=== PATIENT | male | born 1955 | race Caucasian/White ===

== ENCOUNTER 2018-03-23 19:07 | Emergency (ER) | payer OTHER ==
[~2018-03-23] VITALS: Ht 172.7 cm; Wt 70.3 kg
[~2018-03-23 19:07] MED LIST: ANTOXYBENA OT; ASPI325EC PO; CALCAVITD PO; CARI350 PO; CEPH500 PO; CYCL10 PO; DIAZ2 PO; DIAZ5 PO; Desyrel150 MG; GABA100 PO; GABA300 PO; HYDACE5 PO; HYDR1TAB94 PO; META800 PO; METH10 PO; METH1EL PO; MULVITMIND PO; NEOPOLHCSU OT; OXYACE5T PO; Omeprazole20 M1; PENVK250 PO; PENVK500 PO; PRAV20 PO; PRED10 PO; Percocet 5-3251 EACH PO; Pravachol40 MG PO; RXCLIN PO; RXCYCL10 PO; RXHYD5325 PO; RXMETA800 PO; RXOXYACE PO; RXPENVK250 PO; RXTRAM50 PO; Robaxin-750750 MG PO; Robaxin500 MG PO; SULTRIDS PO; TRAM50 PO; Veetids 500500 MG PO
[2018-03-23] MEDS ORDERED: Robaxin500 MG PO (21:28)
== END 2018-03-23 21:44 | disposition home or self-care (01) ==
LOC: ER 19:07
DX: M54.5 Low back pain (principal); M54.6 Pain in thoracic spine; I10 Essential (primary) hypertension; F17.210 Nicotine dependence, cigarettes, uncomplicated; Z88.8 Allergy status to other drugs, medicaments and biological substances; Z88.6 Allergy status to analgesic agent; Z88.5 Allergy status to narcotic agent; Z79.899 Other long term (current) drug therapy
CPT/HCPCS: 72070; 72100; 99283

== ENCOUNTER → 2019-06-11 | Outpatient (CLI) | payer OTHER ==
[~2019-06-11] MED LIST changes: +FURO20 PO; +GABA300T24 PO; +Methadone In10 MG/ML PO; +OMEPRAZOLE20 MG PO; +POTCHL20ER PO; +TRAZ150T57 PO
== END | disposition home or self-care (01) ==
LOC: LAB SHORT 08:01 → PLD 08:01
DX: C00-D49 Neoplasms (principal)
CPT/HCPCS: 88305

== ENCOUNTER 2019-06-27 12:28 | Day surgery (SDC) | payer OTHER ==
[~2019-06-27] VITALS: Ht 172.7 cm; Wt 87.0 kg
== END 2019-06-27 15:00 | disposition home or self-care (01) ==
LOC: ORSCSDS 12:28
PROVIDERS: Internal Medicine Gastroenterology
PROC: 0DB58ZX Excision of Esophagus, Via Natural or Artificial Opening Endoscopic, Diagnostic (ICD-10-PCS; principal; 2019-06-27 13:30)
PROC: 0DB68ZX Excision of Stomach, Via Natural or Artificial Opening Endoscopic, Diagnostic (ICD-10-PCS; principal; 2019-06-27 13:30)
DX: K21.0 Gastro-esophageal reflux disease with esophagitis (principal); K29.70 Gastritis, unspecified, without bleeding; K44.9 Diaphragmatic hernia without obstruction or gangrene; Z79.899 Other long term (current) drug therapy; F17.210 Nicotine dependence, cigarettes, uncomplicated
CPT/HCPCS: 88305; 88342; J2704; J7120

== ENCOUNTER 2019-09-07 16:02 | Emergency (ER) | payer OTHER ==
[~2019-09-07] VITALS: Ht 177.8 cm; Wt 86.2 kg
== END 2019-09-07 17:54 | disposition home or self-care (01) ==
LOC: ER 16:02
DX: S22.32XA Fracture of one rib, left side, initial encounter for closed fracture (principal); I10 Essential (primary) hypertension; F17.210 Nicotine dependence, cigarettes, uncomplicated; Z85.46 Personal history of malignant neoplasm of prostate; Z85.828 Personal history of other malignant neoplasm of skin; Z88.6 Allergy status to analgesic agent; Z88.8 Allergy status to other drugs, medicaments and biological substances; Z79.899 Other long term (current) drug therapy; Z79.891 Long term (current) use of opiate analgesic; W10.9XXA Fall (on) (from) unspecified stairs and steps, initial encounter
CPT/HCPCS: 71101; 99283-25

== ENCOUNTER 2019-09-14 18:20 | Emergency (ER) | payer OTHER ==
[~2019-09-14] VITALS: Ht 177.8 cm; Wt 88.5 kg
== END 2019-09-14 19:45 | disposition left against medical advice (07) ==
LOC: ER 18:20
DX: Z53.21 Procedure and treatment not carried out due to patient leaving prior to being seen by health care provider (principal)
CPT/HCPCS: 99283

== ENCOUNTER 2020-10-13 10:04 | Day surgery (SDC) | payer OTHER ==
[~2020-10-13] VITALS: Ht 177.8 cm; Wt 85.3 kg
== END 2020-10-13 11:48 | disposition home or self-care (01) ==
LOC: ORSCSDS 10:04
PROVIDERS: Internal Medicine Gastroenterology
PROC: 0D758ZZ Dilation of Esophagus, Via Natural or Artificial Opening Endoscopic (ICD-10-PCS; principal; 2020-10-13 11:15)
PROC: 0DJ08ZZ Inspection of Upper Intestinal Tract, Via Natural or Artificial Opening Endoscopic (ICD-10-PCS; principal; 2020-10-13 11:15)
DX: R13.10 Dysphagia, unspecified (principal); F17.210 Nicotine dependence, cigarettes, uncomplicated
CPT/HCPCS: J2704; J7120

== ENCOUNTER 2021-12-08 17:38 | Emergency (ER) | payer MEDICARE, OTHER ==
[~2021-12-08] VITALS: Ht 177.8 cm; Wt 95.2 kg
[2021-12-08 20:13] LABS: Source, Urine Clean Catch
[2021-12-08 20:33] LABS: Appearance, Urine Cloudy (Clear); Bilirubin, Urine Neg (Neg); Blood, Urine 2+ (Neg); Color, Urine Yellow (P-Yellow); Glucose Qualitative, Urine Neg (Neg); Ketones, Urine Neg (Neg); Leukocyte Esterase, Urine Neg (Neg); Nitrite, Urine Neg (Neg); Protein, Urine 2+ (Neg); Urobilinogen, Urine NORM (Normal)
[2021-12-08 21:10] LABS: Amorphous Heavy (0-Heavy); Bacteria Rare /hpf; Squamous Epithelial Cells Few /hpf (Few); White Blood Cells, Urine 0-2 /hpf (0-5)
[2021-12-08] MEDS ORDERED: CYCL10 PO (21:34)
[2021-12-08] MEDS ORDERED: PRED20 PO (21:34)
== END 2021-12-08 23:02 | disposition home or self-care (01) ==
LOC: ER 17:38
PROVIDERS: Physician Assistant
DX: M54.6 Pain in thoracic spine (principal); Z88.6 Allergy status to analgesic agent; Z88.8 Allergy status to other drugs, medicaments and biological substances; Z79.899 Other long term (current) drug therapy; I10 Essential (primary) hypertension; F17.210 Nicotine dependence, cigarettes, uncomplicated
CPT/HCPCS: 81001; A9270; J3010

== ENCOUNTER → 2022-02-10 | Outpatient (CLI) | payer MEDICARE, OTHER ==
[~2022-02-10] MED LIST changes: +PRED20 PO
[2022-02-10 20:10] LABS: BASOPHILS ABSOLUTE AUTO 0.06 K/mm3 (0.00-0.23); BASOPHILS PERCENT AUTO 0 % (0-2); EOSINOPHILS ABSOLUTE AUTO 0.52 K/mm3 (0.00-0.68); EOSINOPHILS PERCENT AUTO 4 % (0-6); Hematocrit 35.8 % (37.0-53.0); Hemoglobin 11.6 g/dL (13.5-17.5); IMMATURE GRAN ABSOLUTE AUTO 0.12 K/mm3 (0.00-0.10); IMMATURE GRAN PERCENT AUTO 1 % (0-1); LYMPHOCYTES ABSOLUTE AUTO 1.72 K/mm3 (0.84-5.20); LYMPHOCYTES PERCENT AUTO 13 % (21-46); MONOCYTES ABSOLUTE AUTO 1.02 K/mm3 (0.16-1.47); MONOCYTES PERCENT AUTO 8 % (4-13); Mean Corpuscular HGB 28.2 pg (26.0-34.0); Mean Corpuscular HGB Conc 32.4 g/dL (31.5-36.5); Mean Corpuscular Volume 87 fL (80-100); Mean Platelet Volume 10.8 fL (9.1-12.4); NEUTROPHILS ABSOLUTE AUTO 9.96 K/mm3 (1.96-9.15); NEUTROPHILS PERCENT AUTO 74 % (41-73); Platelet Count 328 K/mm3 (150-400); RDW Standard Deviation 57.1 fL (35.1-46.3); Red Blood Cell Count 4.12 M/mm3 (4.30-5.90)
[2022-02-10 21:51] LABS: Alanine Aminotransfer (ALT/SGP 15 U/L (12-78); Albumin, Blood 2.7 g/dL (3.4-5.0); Albumin/Globulin Ratio 0.7 (0.8-1.8); Alk Phos 103 U/L (50-136); Anion Gap 1 mmol/L (6-16); Aspartate Aminotrans (AST/SGOT 8 U/L (12-37); Bilirubin, Total 0.4 mg/dL (0.1-1.0); Blood Urea Nitrogen 9 mg/dL (8-24); Bun/Creatinine Ratio 10.3 (12.0-20.0); CO2, Blood 35 mmol/L (21-32); Calcium, Blood 8.4 mg/dL (8.5-10.1); Chloride, Blood 104 mmol/L (98-108); Creatinine, Blood 0.87 mg/dL (0.60-1.20); Globulin, Blood 3.8 g/dL (2.2-4.0); Glomerular Filtration Rate >60 (60-); Glucose, Blood 90 mg/dL (70-99); Potassium, Blood 4.3 mmol/L (3.5-5.5); Sodium, Blood 140 mmol/L (136-145); Total Protein, Blood 6.5 g/dL (6.4-8.2)
[2022-02-11 19:58] LABS: Ferritin, Serum 50 ng/mL (26-388); Iron Serum 26 ug/dL (65-175); Percent Saturation 10.3 % (20.0-50.0); Total Iron Binding Capacity 253 ug/dL (250-450)
[2022-02-11 20:13] LABS: PSA, %Free Unable to Calculate %; PSA, Free <0.015 ng/mL
== END | disposition home or self-care (01) ==
LOC: LAB 18:30 → LAB SHORT 18:30
PROVIDERS: Nurse Practitioner Family
DX: E55.9 Vitamin D deficiency, unspecified (principal); D50.9 Iron deficiency anemia, unspecified; N40.0 Benign prostatic hyperplasia without lower urinary tract symptoms; R30.9 Painful micturition, unspecified; R53.83 Other fatigue; R73.03 Prediabetes
CPT/HCPCS: 80053; 82306; 82728; 83036; 83540; 83550; 84153; 84154; 84443; 85025; 87077; 87086; 87186

== ENCOUNTER → 2022-03-24 | Outpatient (CLI) | payer MEDICARE, OTHER | END | disposition home or self-care (01) | LOC: LAB 13:19 → LAB SHORT 13:19 | DX: R30.9 Painful micturition, unspecified (principal) | CPT/HCPCS: 87077; 87086; 87186 ==

== ENCOUNTER 2022-05-19 12:57 | Emergency (ER) | payer MEDICARE, OTHER ==
[~2022-05-19] VITALS: Ht 175.3 cm; Wt 85.7 kg
[2022-05-19 13:53] LABS: BASOPHILS ABSOLUTE AUTO 0.04 K/mm3 (0.00-0.23); BASOPHILS PERCENT AUTO 0 % (0-2); EOSINOPHILS ABSOLUTE AUTO 0.39 K/mm3 (0.00-0.68); EOSINOPHILS PERCENT AUTO 3 % (0-6); Hematocrit 37.4 % (37.0-53.0); IMMATURE GRAN ABSOLUTE AUTO 0.06 K/mm3 (0.00-0.10); IMMATURE GRAN PERCENT AUTO 0 % (0-1); LYMPHOCYTES ABSOLUTE AUTO 1.29 K/mm3 (0.84-5.20); LYMPHOCYTES PERCENT AUTO 9 % (21-46); MONOCYTES ABSOLUTE AUTO 0.76 K/mm3 (0.16-1.47); MONOCYTES PERCENT AUTO 5 % (4-13); Mean Corpuscular HGB 28.8 pg (26.0-34.0); Mean Corpuscular HGB Conc 32.1 g/dL (31.5-36.5); Mean Corpuscular Volume 90 fL (80-100); Mean Platelet Volume 10.9 fL (9.1-12.4); NEUTROPHILS ABSOLUTE AUTO 12.47 K/mm3 (1.96-9.15); NEUTROPHILS PERCENT AUTO 83 % (41-73); Platelet Count 365 K/mm3 (150-400); RDW Coefficient Variation 17.4 % (11.7-14.2); RDW Standard Deviation 58.1 fL (35.1-46.3); Red Blood Cell Count 4.17 M/mm3 (4.30-5.90); White Blood Cell Count 15.01 K/mm3 (4.00-11.30)
[2022-05-19 13:59] LABS: Albumin, Blood 2.5 g/dL (3.4-5.0); Albumin/Globulin Ratio 0.6 (0.8-1.8); Bilirubin, Total 0.4 mg/dL (0.1-1.0); Bun/Creatinine Ratio 11.8 (12.0-20.0); Calcium, Blood 8.4 mg/dL (8.5-10.1); Creatinine, Blood 0.85 mg/dL (0.60-1.20); Globulin, Blood 4.5 g/dL (2.2-4.0); Potassium, Blood 4.3 mmol/L (3.5-5.5)
== END 2022-05-19 17:50 | disposition home or self-care (01) ==
LOC: ER 12:57
PROVIDERS: Emergency Medicine
DX: M17.11 Unilateral primary osteoarthritis, right knee (principal); R40.0 Somnolence; I10 Essential (primary) hypertension; F17.210 Nicotine dependence, cigarettes, uncomplicated; Z79.899 Other long term (current) drug therapy
CPT/HCPCS: 36415; 71045; 73562-RT; 80053; 83605; 85025; 87040; 93005; 93010; 99284-25

== ENCOUNTER 2022-10-05 14:44 | Day surgery (SDC) | payer MEDICARE, OTHER ==
[~2022-10-05] VITALS: Ht 167.6 cm; Wt 89.2 kg
== END 2022-10-05 19:07 | disposition home or self-care (01) ==
LOC: ORSCSDS 14:44
PROVIDERS: Internal Medicine Gastroenterology
PROC: 0DBL8ZX Excision of Transverse Colon, Via Natural or Artificial Opening Endoscopic, Diagnostic (ICD-10-PCS; principal; 2022-10-05 14:45)
PROC: 0DBN8ZX Excision of Sigmoid Colon, Via Natural or Artificial Opening Endoscopic, Diagnostic (ICD-10-PCS; principal; 2022-10-05 14:45)
PROC: 0DBM8ZX Excision of Descending Colon, Via Natural or Artificial Opening Endoscopic, Diagnostic (ICD-10-PCS; principal; 2022-10-05 14:45)
DX: N32.2 Vesical fistula, not elsewhere classified (principal); D12.3 Benign neoplasm of transverse colon; D12.4 Benign neoplasm of descending colon; D12.5 Benign neoplasm of sigmoid colon; K57.30 Diverticulosis of large intestine without perforation or abscess without bleeding; K64.8 Other hemorrhoids; K64.4 Residual hemorrhoidal skin tags; J44.9 Chronic obstructive pulmonary disease, unspecified; Z87.891 Personal history of nicotine dependence; E78.00 Pure hypercholesterolemia, unspecified; F32.A Depression, unspecified; Z79.899 Other long term (current) drug therapy
CPT/HCPCS: 88305; J2704; J7120

== ENCOUNTER 2022-10-18 18:36 | Emergency (ER) | payer MEDICARE, OTHER ==
[~2022-10-18] VITALS: Ht 172.7 cm; Wt 90.7 kg
[2022-10-18 21:12] LABS: BASOPHILS ABSOLUTE AUTO 0.06 K/mm3 (0.00-0.23); BASOPHILS PERCENT AUTO 1 % (0-2); EOSINOPHILS ABSOLUTE AUTO 0.33 K/mm3 (0.00-0.68); EOSINOPHILS PERCENT AUTO 3 % (0-6); Hematocrit 37.4 % (37.0-53.0); Hemoglobin 12.5 g/dL (13.5-17.5); IMMATURE GRAN ABSOLUTE AUTO 0.06 K/mm3 (0.00-0.10); IMMATURE GRAN PERCENT AUTO 1 % (0-1); LYMPHOCYTES ABSOLUTE AUTO 1.59 K/mm3 (0.84-5.20); LYMPHOCYTES PERCENT AUTO 16 % (21-46); MONOCYTES ABSOLUTE AUTO 0.66 K/mm3 (0.16-1.47); MONOCYTES PERCENT AUTO 7 % (4-13); Mean Corpuscular HGB 29.3 pg (26.0-34.0); Mean Corpuscular HGB Conc 33.4 g/dL (31.5-36.5); Mean Corpuscular Volume 88 fL (80-100); Mean Platelet Volume 10.7 fL (9.1-12.4); NEUTROPHILS ABSOLUTE AUTO 7.41 K/mm3 (1.96-9.15); NEUTROPHILS PERCENT AUTO 73 % (41-73); Platelet Count 484 K/mm3 (150-400); RDW Coefficient Variation 16.2 % (11.7-14.2); RDW Standard Deviation 52.2 fL (35.1-46.3); Red Blood Cell Count 4.26 M/mm3 (4.30-5.90); White Blood Cell Count 10.11 K/mm3 (4.00-11.30)
[2022-10-18 21:33] LABS: Influenza A, PCR NEGATIVE (NEGATIVE); Influenza B, PCR NEGATIVE (NEGATIVE); Resp Syncytial Virus, PCR NEGATIVE (NEGATIVE); SARS-Cov-2 (COVID-19) PCR, MMC NEGATIVE (NEGATIVE)
[2022-10-18 22:46] LABS: Albumin, Blood 2.4 g/dL (3.4-5.0); Albumin/Globulin Ratio 0.5 (0.8-1.8); Bilirubin, Total 0.4 mg/dL (0.1-1.0); Bun/Creatinine Ratio 9.2 (12.0-20.0); Calcium, Blood 8.6 mg/dL (8.5-10.1); Creatinine, Blood 0.76 mg/dL (0.60-1.20); Globulin, Blood 4.9 g/dL (2.2-4.0); Potassium, Blood 5.1 mmol/L (3.5-5.5); Total Protein, Blood 7.3 g/dL (6.4-8.2)
== END 2022-10-18 23:23 | disposition home or self-care (01) ==
LOC: ER 18:36
PROVIDERS: Physician Assistant; Student in an Organized Health Care Education/Training Program
DX: R07.9 Chest pain, unspecified (principal); I10 Essential (primary) hypertension; F17.210 Nicotine dependence, cigarettes, uncomplicated; J44.9 Chronic obstructive pulmonary disease, unspecified; Z20.822 Contact with and (suspected) exposure to COVID-19; Z79.899 Other long term (current) drug therapy; Z88.5 Allergy status to narcotic agent; Z88.8 Allergy status to other drugs, medicaments and biological substances
CPT/HCPCS: 0241U; 36415; 71046; 80053; 83880; 84484; 85025; 93005; 93010; 94640; 94664; 99285-25

== ENCOUNTER → 2023-01-06 | Outpatient (CLI) | payer MEDICARE, OTHER ==
[~2023-01-06] MED LIST changes: +ALBU90OI INH; +AMOCLA875 PO; +DOXY100 PO
[2023-01-06 17:52] LABS: Source, Urine Clean Catch
[2023-01-06 18:45] LABS: White Blood Cells, Urine TNTC /hpf (0-5)
[2023-01-06 18:46] LABS: Squamous Epithelial Cells Rare /hpf (Few)
[2023-01-06 18:47] LABS: Bacteria Many /hpf; Mucus Light (0-Heavy); Transitional Epithelial Cells Rare /hpf (0-Rare)
== END | disposition home or self-care (01) ==
LOC: LAB SHORT 17:51
PROVIDERS: Nurse Practitioner Family
DX: R35.0 Frequency of micturition (principal)
CPT/HCPCS: 81015; 87077; 87086; 87186

== ENCOUNTER 2023-01-07 01:19 | Emergency (ER) | payer MEDICARE, OTHER ==
[~2023-01-07] VITALS: Ht 177.8 cm; Wt 90.7 kg
[~2023-01-07 01:19] MED LIST changes: -ALBU90OI INH; -AMOCLA875 PO; -DOXY100 PO
[2023-01-07 01:53] LABS: BASOPHILS ABSOLUTE AUTO 0.04 K/mm3 (0.00-0.23); BASOPHILS PERCENT AUTO 0 % (0-2); EOSINOPHILS ABSOLUTE AUTO 0.24 K/mm3 (0.00-0.68); EOSINOPHILS PERCENT AUTO 1 % (0-6); Hematocrit 38.7 % (37.0-53.0); Hemoglobin 12.6 g/dL (13.5-17.5); IMMATURE GRAN ABSOLUTE AUTO 0.11 K/mm3 (0.00-0.10); IMMATURE GRAN PERCENT AUTO 1 % (0-1); LYMPHOCYTES ABSOLUTE AUTO 0.37 K/mm3 (0.84-5.20); LYMPHOCYTES PERCENT AUTO 2 % (21-46); MONOCYTES ABSOLUTE AUTO 0.65 K/mm3 (0.16-1.47); MONOCYTES PERCENT AUTO 4 % (4-13); Mean Corpuscular HGB 29.5 pg (26.0-34.0); Mean Corpuscular HGB Conc 32.6 g/dL (31.5-36.5); Mean Corpuscular Volume 91 fL (80-100); Mean Platelet Volume 10.6 fL (9.1-12.4); NEUTROPHILS ABSOLUTE AUTO 15.25 K/mm3 (1.96-9.15); NEUTROPHILS PERCENT AUTO 92 % (41-73); Platelet Count 326 K/mm3 (150-400); RDW Coefficient Variation 17.2 % (11.7-14.2); RDW Standard Deviation 57.3 fL (35.1-46.3); Red Blood Cell Count 4.27 M/mm3 (4.30-5.90); White Blood Cell Count 16.66 K/mm3 (4.00-11.30)
[2023-01-07 02:07] LABS: Albumin, Blood 2.7 g/dL (3.4-5.0); Albumin/Globulin Ratio 0.6 (0.8-1.8); Bilirubin, Total 0.5 mg/dL (0.1-1.0); Bun/Creatinine Ratio 11.3 (12.0-20.0); Creatinine, Blood 0.89 mg/dL (0.60-1.20); Globulin, Blood 4.9 g/dL (2.2-4.0); Potassium, Blood 4.3 mmol/L (3.5-5.5); Total Protein, Blood 7.6 g/dL (6.4-8.2)
[2023-01-07 05:08] LABS: Influenza A, PCR NEGATIVE (NEGATIVE); Influenza B, PCR NEGATIVE (NEGATIVE); Resp Syncytial Virus, PCR NEGATIVE (NEGATIVE); SARS-Cov-2 (COVID-19) PCR, MMC NEGATIVE (NEGATIVE)
[2023-01-07] MEDS ORDERED: PRED20 PO (06:35)
[2023-01-07] MEDS ORDERED: DOXY100 PO (06:36)
[2023-01-07] MEDS ORDERED: AMOCLA875 PO (06:36)
[2023-01-07] MEDS ORDERED: ALBU90OI INH (06:38)
== END 2023-01-07 07:28 | disposition home or self-care (01) ==
LOC: ER 01:19
PROVIDERS: Student in an Organized Health Care Education/Training Program
DX: A41.9 Sepsis, unspecified organism (principal); J18.9 Pneumonia, unspecified organism; J44.1 Chronic obstructive pulmonary disease with (acute) exacerbation; I10 Essential (primary) hypertension; F17.210 Nicotine dependence, cigarettes, uncomplicated; Z79.899 Other long term (current) drug therapy; Z88.8 Allergy status to other drugs, medicaments and biological substances; Z88.6 Allergy status to analgesic agent; Z88.5 Allergy status to narcotic agent; Z20.822 Contact with and (suspected) exposure to COVID-19
CPT/HCPCS: 0241U; 36415; 71045; 80053; 83605; 83880; 84484; 85025; 93005; 93010; 94640; 94664; A9270; J0696; J7512

== ENCOUNTER → 2023-01-26 | Outpatient (CLI) | payer MEDICARE, OTHER ==
[~2023-01-26] MED LIST changes: +ALBU90OI INH; +AMOCLA875 PO; +DOXY100 PO
== END | disposition home or self-care (01) ==
LOC: LAB SHORT 11:55 → LAB 11:55
DX: S81.802A Unspecified open wound, left lower leg, initial encounter (principal)
CPT/HCPCS: 87070; 87075; 87077; 87186; 87205

== ENCOUNTER 2023-03-13 16:35 | Emergency (ER) | payer MEDICARE, OTHER ==
[~2023-03-13] VITALS: Ht 177.8 cm; Wt 90.7 kg
[2023-03-13 17:16] LABS: BASOPHILS ABSOLUTE AUTO 0.06 K/mm3 (0.00-0.23); BASOPHILS PERCENT AUTO 1 % (0-2); EOSINOPHILS ABSOLUTE AUTO 1.08 K/mm3 (0.00-0.68); EOSINOPHILS PERCENT AUTO 12 % (0-6); Hematocrit 35.7 % (37.0-53.0); Hemoglobin 11.7 g/dL (13.5-17.5); IMMATURE GRAN ABSOLUTE AUTO 0.05 K/mm3 (0.00-0.10); IMMATURE GRAN PERCENT AUTO 1 % (0-1); LYMPHOCYTES ABSOLUTE AUTO 1.35 K/mm3 (0.84-5.20); LYMPHOCYTES PERCENT AUTO 15 % (21-46); MONOCYTES ABSOLUTE AUTO 0.78 K/mm3 (0.16-1.47); MONOCYTES PERCENT AUTO 9 % (4-13); Mean Corpuscular HGB 30.3 pg (26.0-34.0); Mean Corpuscular HGB Conc 32.8 g/dL (31.5-36.5); Mean Corpuscular Volume 93 fL (80-100); Mean Platelet Volume 10.5 fL (9.1-12.4); NEUTROPHILS ABSOLUTE AUTO 5.72 K/mm3 (1.96-9.15); NEUTROPHILS PERCENT AUTO 63 % (41-73); Platelet Count 333 K/mm3 (150-400); RDW Coefficient Variation 17.1 % (11.7-14.2); RDW Standard Deviation 57.3 fL (35.1-46.3); Red Blood Cell Count 3.86 M/mm3 (4.30-5.90); White Blood Cell Count 9.04 K/mm3 (4.00-11.30)
[2023-03-13 17:35] LABS: Albumin, Blood 2.4 g/dL (3.4-5.0); Albumin/Globulin Ratio 0.5 (0.8-1.8); Bilirubin, Total 0.4 mg/dL (0.1-1.0); Bun/Creatinine Ratio 9.2 (12.0-20.0); Calcium, Blood 8.7 mg/dL (8.5-10.1); Creatinine, Blood 0.98 mg/dL (0.60-1.20); Globulin, Blood 4.8 g/dL (2.2-4.0); Potassium, Blood 4.2 mmol/L (3.5-5.5); Total Protein, Blood 7.2 g/dL (6.4-8.2)
[2023-03-13] MEDS ORDERED: Ventolin/Prove6.7 GM (18:38)
[2023-03-13] MEDS ORDERED: DOCU100 PO (20:17)
[2023-03-13 20:30] VITALS: BP 133/73
== END 2023-03-13 20:57 | disposition home or self-care (01) ==
LOC: ER 16:35
PROVIDERS: Physician Assistant
DX: K59.00 Constipation, unspecified (principal); K44.9 Diaphragmatic hernia without obstruction or gangrene; I10 Essential (primary) hypertension; J44.9 Chronic obstructive pulmonary disease, unspecified; F17.210 Nicotine dependence, cigarettes, uncomplicated; Z79.52 Long term (current) use of systemic steroids; Z79.899 Other long term (current) drug therapy; Z88.5 Allergy status to narcotic agent; Z88.8 Allergy status to other drugs, medicaments and biological substances
CPT/HCPCS: 74177; 80053; 83690; 85025; 99284-25; Q9967

== ENCOUNTER 2023-04-05 14:20 | Emergency (ER) | payer MEDICARE, OTHER ==
[~2023-04-05] VITALS: Ht 172.7 cm; Wt 90.7 kg
[~2023-04-05 14:20] MED LIST changes: +DOCU100 PO; +Ventolin/Prove6.7 GM
[2023-04-05 14:39] VITALS: BP 116/59
== END 2023-04-05 15:56 | disposition home or self-care (01) ==
LOC: ER 14:20
DX: S81.801A Unspecified open wound, right lower leg, initial encounter (principal); F17.210 Nicotine dependence, cigarettes, uncomplicated; Z88.8 Allergy status to other drugs, medicaments and biological substances; Z88.6 Allergy status to analgesic agent; Z88.5 Allergy status to narcotic agent; X58.XXXA Exposure to other specified factors, initial encounter
CPT/HCPCS: 99283

== ENCOUNTER 2023-04-06 09:08 | Day surgery (SDC) | payer MEDICARE, OTHER ==
[~2023-04-06 09:08] MED LIST changes: -Ventolin/Prove6.7 GM; +Ventolin/Prove6.7 GM INH
[2023-04-17] MEDS ORDERED: NARCAN4 M1 (19:16)
[2023-04-26] MEDS ORDERED: NITR100CA PO (16:56)
[2023-04-26] MEDS ORDERED: OMEP20ER PO (17:11)
[2023-04-26] MEDS ORDERED: TAMS.4ER PO (17:11)
[2023-04-26] MEDS ORDERED: COMBIVENT RESPIM4 G1 INH (17:12)
[2023-04-30] MEDS ORDERED: ACET325 PO (14:15)
[2023-04-30] MEDS ORDERED: Diflucan100 MG PO (14:16)
[2023-04-30] MEDS ORDERED: NYSTRIT TOP (14:17)
[2023-04-30] MEDS ORDERED: SENNA LAXATIVE8.6 MG PO (14:18)
[2023-04-30] MEDS ORDERED: PROBIOTIC1 EA14 PO (14:18)
[2023-04-30] MEDS ORDERED: LEVO750 PO (14:20)
[2023-04-30] MEDS ORDERED: CEPH500 PO (14:20)
== END 2023-04-10 23:13 | disposition home or self-care (01) ==
LOC: WOUND 09:08
DX: L97.812 Non-pressure chronic ulcer of other part of right lower leg with fat layer exposed (principal); I87.2 Venous insufficiency (chronic) (peripheral); Z85.46 Personal history of malignant neoplasm of prostate; J44.9 Chronic obstructive pulmonary disease, unspecified; S81.801D Unspecified open wound, right lower leg, subsequent encounter; I50.9 Heart failure, unspecified; F11.21 Opioid dependence, in remission; F17.210 Nicotine dependence, cigarettes, uncomplicated
CPT/HCPCS: 99406; A9270; G0463

== ENCOUNTER 2023-05-15 15:20 | Emergency (ER) | payer MEDICARE, OTHER ==
[~2023-05-15] VITALS: Ht 172.7 cm; Wt 81.7 kg
[2023-05-15 16:16] LABS: BASOPHILS ABSOLUTE AUTO 0.07 K/mm3 (0.00-0.23); BASOPHILS PERCENT AUTO 1 % (0-2); EOSINOPHILS ABSOLUTE AUTO 0.37 K/mm3 (0.00-0.68); EOSINOPHILS PERCENT AUTO 3 % (0-6); Hemoglobin 13.1 g/dL (13.5-17.5); IMMATURE GRAN ABSOLUTE AUTO 0.05 K/mm3 (0.00-0.10); IMMATURE GRAN PERCENT AUTO 0 % (0-1); LYMPHOCYTES ABSOLUTE AUTO 1.23 K/mm3 (0.84-5.20); LYMPHOCYTES PERCENT AUTO 11 % (21-46); MONOCYTES ABSOLUTE AUTO 1.17 K/mm3 (0.16-1.47); MONOCYTES PERCENT AUTO 10 % (4-13); Mean Corpuscular HGB 30.1 pg (26.0-34.0); Mean Corpuscular HGB Conc 32.8 g/dL (31.5-36.5); Mean Corpuscular Volume 92 fL (80-100); Mean Platelet Volume 10.1 fL (9.1-12.4); NEUTROPHILS ABSOLUTE AUTO 8.57 K/mm3 (1.96-9.15); NEUTROPHILS PERCENT AUTO 75 % (41-73); Platelet Count 360 K/mm3 (150-400); RDW Coefficient Variation 17.5 % (11.7-14.2); RDW Standard Deviation 58.4 fL (35.1-46.3); Red Blood Cell Count 4.35 M/mm3 (4.30-5.90); White Blood Cell Count 11.46 K/mm3 (4.00-11.30)
[2023-05-15 16:34] LABS: Albumin, Blood 2.4 g/dL (3.4-5.0); Albumin/Globulin Ratio 0.4 (0.8-1.8); Bilirubin, Total 0.3 mg/dL (0.1-1.0); Bun/Creatinine Ratio 11.1 (12.0-20.0); Calcium, Blood 8.7 mg/dL (8.5-10.1); Creatinine, Blood 0.9 mg/dL (0.60-1.20); Globulin, Blood 5.6 g/dL (2.2-4.0); Potassium, Blood 4.6 mmol/L (3.5-5.5)
[2023-05-15] MEDS ORDERED: SULTRIDS PO (20:18)
[2023-05-15] MEDS ORDERED: CEPH500 PO (20:18)
[2023-05-15 21:26] VITALS: BP 129/74
== END 2023-05-15 22:31 | disposition home or self-care (01) ==
LOC: ER 15:20
PROVIDERS: Student in an Organized Health Care Education/Training Program
DX: L03.115 Cellulitis of right lower limb (principal); Z88.6 Allergy status to analgesic agent; Z88.8 Allergy status to other drugs, medicaments and biological substances; Z79.899 Other long term (current) drug therapy; Z88.5 Allergy status to narcotic agent; I10 Essential (primary) hypertension; F17.210 Nicotine dependence, cigarettes, uncomplicated; S81.801D Unspecified open wound, right lower leg, subsequent encounter; S81.802D Unspecified open wound, left lower leg, subsequent encounter
CPT/HCPCS: 80053; 85025; 87070; 87075; 87205; 96360; 99283-25; A9270; J7030

== ENCOUNTER → 2023-05-15 | Outpatient (CLI) | payer MEDICARE, OTHER ==
[~2023-05-15] MED LIST changes: +ACET325 PO; +COMBIVENT RESPIM4 G1 INH; +Diflucan100 MG PO; +LEVO750 PO; +NARCAN4 M1; +NITR100CA PO; +NYSTRIT TOP; +OMEP20ER PO; +PROBIOTIC1 EA14 PO; +SENNA LAXATIVE8.6 MG PO; +TAMS.4ER PO
== END ==
LOC: LAB SHORT 13:30 → LAB 13:30
DX: S81.801D Unspecified open wound, right lower leg, subsequent encounter (principal); S81.802D Unspecified open wound, left lower leg, subsequent encounter
CPT/HCPCS: 87070; 87075; 87205

== ENCOUNTER 2023-06-14 12:10 | Inpatient (IN) | payer MEDICARE, OTHER ==
[~2023-06-14] VITALS: Ht 177.8 cm; Wt 53.0 kg
[2023-06-14 12:44] LABS: BASOPHILS ABSOLUTE AUTO 0.06 K/mm3 (0.00-0.23); BASOPHILS PERCENT AUTO 0 % (0-2); EOSINOPHILS ABSOLUTE AUTO 0.12 K/mm3 (0.00-0.68); EOSINOPHILS PERCENT AUTO 1 % (0-6); Hematocrit 38.3 % (37.0-53.0); Hemoglobin 12.7 g/dL (13.5-17.5); IMMATURE GRAN ABSOLUTE AUTO 0.13 K/mm3 (0.00-0.10); IMMATURE GRAN PERCENT AUTO 1 % (0-1); LYMPHOCYTES ABSOLUTE AUTO 0.89 K/mm3 (0.84-5.20); LYMPHOCYTES PERCENT AUTO 5 % (21-46); MONOCYTES ABSOLUTE AUTO 1.04 K/mm3 (0.16-1.47); MONOCYTES PERCENT AUTO 6 % (4-13); Mean Corpuscular HGB 31.1 pg (26.0-34.0); Mean Corpuscular HGB Conc 33.2 g/dL (31.5-36.5); Mean Corpuscular Volume 94 fL (80-100); Mean Platelet Volume 10.3 fL (9.1-12.4); NEUTROPHILS ABSOLUTE AUTO 14.53 K/mm3 (1.96-9.15); NEUTROPHILS PERCENT AUTO 87 % (41-73); Platelet Count 378 K/mm3 (150-400); RDW Coefficient Variation 17.6 % (11.7-14.2); RDW Standard Deviation 61.3 fL (35.1-46.3); Red Blood Cell Count 4.09 M/mm3 (4.30-5.90); White Blood Cell Count 16.77 K/mm3 (4.00-11.30)
[2023-06-14 12:59] LABS: C-REACTIVE PROTEIN, EXT RANGE 13.9 mg/dL (0.000-0.300)
[2023-06-14 13:14] LABS: Albumin, Blood 2.1 g/dL (3.4-5.0); Albumin/Globulin Ratio 0.4 (0.8-1.8); Bilirubin, Total 0.4 mg/dL (0.1-1.0); Bun/Creatinine Ratio 12.1 (12.0-20.0); Calcium, Blood 8.7 mg/dL (8.5-10.1); Creatinine, Blood 0.91 mg/dL (0.60-1.20); Globulin, Blood 5.3 g/dL (2.2-4.0); Potassium, Blood 4.9 mmol/L (3.5-5.5); Total Protein, Blood 7.4 g/dL (6.4-8.2)
[2023-06-14 15:20] LABS: Source, Urine Clean Catch
[2023-06-14 15:30] LABS: Appearance, Urine Cloudy (Clear); Bilirubin, Urine Neg (Neg); Blood, Urine 3+ (Neg); Color, Urine Yellow (P-Yellow); Glucose Qualitative, Urine Neg (Neg); Ketones, Urine Neg (Neg); Leukocyte Esterase, Urine 2+ (Neg); Nitrite, Urine Pos (Neg); Protein, Urine 2+ (Neg); Urobilinogen, Urine 1+ (Normal); pH, Urine 6.5 (5.0-8.0)
[2023-06-14 15:59] LABS: Amorphous Light (0-Heavy); Bacteria Many /hpf; Hyaline Casts 0-2 /lpf (0-2); Squamous Epithelial Cells Rare /hpf (Few); White Blood Cells, Urine 25-50 /hpf (0-5)
[2023-06-14 16:48] VITALS: BP 130/80
--- NOTE | 2023-06-14 17:09 | NUR ---
PATIENT ARRIVED FROM ER TODAY AT 1645. RIGHT LEG CELLULITIS PATIENT IS A&OX4. VS ARE WNL AND IS ON RA. PATIENT REPORTS 10/10 PAIN ON THE RLE. HIS RIGHT LOWER EXTREMITY HAS CLEAR LIQUID COMING OUT OF IT AND IS EXTREMELY DRY. BILATERAL LOWER EXTREMITIES ARE +2 EDEMA. PATIENT IS ABLE TO MOVE FINGERS AND TOES WHEN ASKED. DENIES NUMBNESS OR TINGLING THROUGHOUT. HIS LJ AREA AND PENIS HAVE REDNESS WELL. DR. WOLFE IS AWARE. HE IS CURRENTLY LAYING IN BED WITH CALL LIGHT IN REACH. PATIENT IS TOLERATING PO INTAKE AND IS VOIDING.
[2023-06-14] MEDS ORDERED: SULTRIDS PO (17:16)
[2023-06-14] MEDS ORDERED: COMBIVENT RESPIM4 G1 INH (17:18)
[2023-06-14] MEDS ORDERED: FAMO20 PO (17:19)
[2023-06-14] MEDS ORDERED: GABA300 PO (17:24)
[2023-06-14] MEDS ORDERED: NITR100CA PO (17:27)
[2023-06-14] MEDS ORDERED: METH10 PO (17:28)
[2023-06-14] MEDS ORDERED: NARCAN4 M1 (17:29)
[2023-06-14] MEDS ORDERED: NICO21TP TOP (17:29)
[2023-06-14] MEDS ORDERED: Nicoderm Cq1 EAC1 TOP (17:29)
[2023-06-14] MEDS ORDERED: Nicoderm Cq1 EACH TOP (17:29)
[2023-06-14] MEDS ORDERED: OMEP20ER PO (17:30)
[2023-06-14] MEDS ORDERED: PRAV20 PO (17:30)
[2023-06-14] MEDS ORDERED: TRAZ150T57 PO (17:31)
[2023-06-14 20:17] VITALS: BP 119/77
[2023-06-15 04:27] VITALS: BP 117/66
[2023-06-15 06:57] LABS: BASOPHILS ABSOLUTE AUTO 0.06 K/mm3 (0.00-0.23); BASOPHILS PERCENT AUTO 1 % (0-2); EOSINOPHILS PERCENT AUTO 2 % (0-6); Hematocrit 34.2 % (37.0-53.0); Hemoglobin 11.4 g/dL (13.5-17.5); IMMATURE GRAN ABSOLUTE AUTO 0.08 K/mm3 (0.00-0.10); IMMATURE GRAN PERCENT AUTO 1 % (0-1); LYMPHOCYTES ABSOLUTE AUTO 0.98 K/mm3 (0.84-5.20); LYMPHOCYTES PERCENT AUTO 9 % (21-46); MONOCYTES ABSOLUTE AUTO 0.87 K/mm3 (0.16-1.47); MONOCYTES PERCENT AUTO 8 % (4-13); Mean Corpuscular HGB 30.8 pg (26.0-34.0); Mean Corpuscular HGB Conc 33.3 g/dL (31.5-36.5); Mean Corpuscular Volume 92 fL (80-100); Mean Platelet Volume 10.1 fL (9.1-12.4); NEUTROPHILS ABSOLUTE AUTO 9.18 K/mm3 (1.96-9.15); NEUTROPHILS PERCENT AUTO 81 % (41-73); Platelet Count 318 K/mm3 (150-400); RDW Coefficient Variation 17.5 % (11.7-14.2); RDW Standard Deviation 59.7 fL (35.1-46.3); White Blood Cell Count 11.37 K/mm3 (4.00-11.30)
[2023-06-15 07:01] LABS: Calcium, Blood 8.2 mg/dL (8.5-10.1); Potassium, Blood 4.3 mmol/L (3.5-5.5)
--- NOTE | 2023-06-15 07:40 | NUR ---
SUMMARY PT SEEN BY DR VICKERS THIS AM. [facility] REG DIET. PT NOT GOING TO OR TODAY.
--- NOTE | 2023-06-15 08:00 | NUR ---
PT ASSESSED FOR IGNITION SOURCES, NO FINDINGS.
--- NOTE | 2023-06-15 12:45 | NUR ---
PT FOUND SLEEPING SOUNDLY IN HIS ROOM. AND WAS DIFFICULTY TO AROUSE WITH VERBAL STIMLI. PT WAS HUNCHED OVER IN BED AND WAS ASSISTED INTO A MORE COMFORTABLE LYING POSITION WITHOUT WAKING. PT WOKE AFTER GENTLY SHAKING HIM. HE QUICKLY FELL BACK TO SLEEP. O2 SATURATION 89% WITH OCCASIONAL DROPS TO 87%; PT APPEARS APNEIC. PT PLACED ON 2L O2 AND SATURATION QUICKLY IMPROVED TO 95%. PULSE OX PLACED.
[2023-06-15 14:35] VITALS: BP 103/56
--- NOTE | 2023-06-15 15:11 | NUR ---
WOUND CONSULTATION PLACED AND CALLED. WOUND CARE IS UNAVALIABLE THIS WEEK TO SEE IN HOSPITAL PATIENTS. PER WOUND CLINIC THEY HAD BEEN USING CALAMINE LOTION, ZINC PASTE, ABD PAD GAUZE AND SARTHAK WRAP WHEN PT HAD BEEN SEEN IN THE WOUND CLINIC EARLIER THIS YEAR.
--- NOTE | 2023-06-15 15:16 | NUR ---
DR. WOLFE NOTIFIED OF PREVIOUS LOW O2 SATURATION THAT IMPROVED WITH 2L O2. PER DR. WOLFE CONTINUE WITH PAIN MEDICATION ORDERED AND MONITOR WITH CONTINUOUS PULSE OX.
[2023-06-15 19:58] VITALS: BP 97/67
--- NOTE | 2023-06-15 20:09 | NUR ---
SHIFT SUMMARY PT IS GETTING IV ABX FOR CELLULITIS. REDNESS APPEARS TO BE IMPROVING TO RLE. PAIN MANAGED WITH METHADONE ALTHOUGH PT BECAME VERY DROWSY AND SOMEWHAT DIFFICULT TO ARROUSE THIS AM, DR. WOLFE AWARE (SEE PREVIOUS NOTE). PT REQUESTED SINCE PT STATES HE WAS NOT ABLE TO MOVE AROUND MUCH AT HOME. WOUND CARE CONSULT CALLED, PER WOUND CENTER THE RN THAT ROUNDS ON INPATIENTS IS OUT THIS WEEK. REPORT GIVEN TO NOC RN.
[2023-06-15 20:12] VITALS: BP 111/62
[2023-06-16 04:42] VITALS: BP 108/77
[2023-06-16 07:16] VITALS: BP 113/58
--- NOTE | 2023-06-16 08:07 | NUR ---
SUMMARY PT WITH COARSE COUGH,DISCUSSED RISKS OF REFUSING PULMONARY CARE.
[2023-06-16 08:22] LABS: Hematocrit 36.3 % (37.0-53.0); Hemoglobin 11.9 g/dL (13.5-17.5); Mean Corpuscular HGB 30.4 pg (26.0-34.0); Mean Corpuscular HGB Conc 32.8 g/dL (31.5-36.5); Mean Corpuscular Volume 93 fL (80-100); Mean Platelet Volume 10.1 fL (9.1-12.4); Platelet Count 333 K/mm3 (150-400); RDW Coefficient Variation 17.7 % (11.7-14.2); RDW Standard Deviation 60.7 fL (35.1-46.3); Red Blood Cell Count 3.92 M/mm3 (4.30-5.90); White Blood Cell Count 11.77 K/mm3 (4.00-11.30)
[2023-06-16 08:45] LABS: Vancomycin, Trough 17.7 ug/mL (5.0-10.0)
[2023-06-16 08:47] LABS: Bun/Creatinine Ratio 10.6 (12.0-20.0); Calcium, Blood 8.1 mg/dL (8.5-10.1); Creatinine, Blood 0.95 mg/dL (0.60-1.20); Potassium, Blood 4.2 mmol/L (3.5-5.5)
--- NOTE | 2023-06-16 12:34 | NUR ---
THIS NURSE CALLED [facility] WOUND CARE AND WAS ABLE TO GET A HOLD OF HIS WOUND CARE NURSE. THE WOUND CARE NURSE SAID THEY JUST WRAPPED HIS LEG WITH ABD PADS AND AN SARTHAK WRAP.
--- NOTE | 2023-06-16 13:23 | NUR ---
THIS NURSE WRAPPED PATIENTS RIGHT LEG PER [facility] WOUND CARE ORDERS. THIS NURSE USED WOUND CLEANSER SPRAY, THEN USED GAUZE TO PAT THE AREA DRY, THEN USED 1 ROLL OF UNNA BOOT GAUZE, THEN 2 ABD PADS FOR EXCESS DRAINAGE, THEN KERELEX, AND THEN WRAPPED IT WITH SARTHAK WRAP. PATIENT TOLERATED IT WELL AND IS LAYING IN BED WITH CALL LIGHT IN REACH. LEGS ARE ELEVATED ON PILLOWS. DRESSING IS TO BE CHANGED EVERY 3 DAYS, SO NEXT DRESSING CHANGE IS TO BE ON Monday06/19/23.
--- NOTE | 2023-06-16 14:59 | NUR ---
SHIFT SUMMARY: RIGHT LEG CELLULITIS PATIENT IS A&OX4 BUT HAS BEEN INTERMITTENTLY SLEEPING MAJORITY OF THE SHIFT. HOWEVER, HE IS EASILY AWAKENED WITH VERBAL STIMULI. PATIENT IS ON 3L NC WITH >90% OXYGEN SATS. ENCOURAGING USE OF INCENTIVE SPIROMETER WHEN DOING NURSE ROUNDING. THIS NURSE WAS ABLE TO GET AHOLD OF HIS WOUND CARE NURSE AT [facility] FOR WOUND CARE DRESSING, WHICH THIS NURSE THEN PLACED SAID DRESSING ON PATIENTS RIGHT LEG (SEE PAST NOTES FOR MORE DETAILS). THIS DRESSING ON HIS RIGHT LEG IS TO BE CHANGED EVERY 3 DAYS, SO NEXT DRESSING CHANGED IS DUE ON Monday06/19/23. PATIENT WAS ABLE TO WORK WITH OT ONCE TODAY AND IS NOW SITTING IN THE RECLINER IN HIS ROOM WITH HIS LEGS ELEVATED ON PILLOWS. CALL LIGHT IS WITHIN REACH. HE IS TOLERATING PO INTAKE AND IS VOIDING WELL HAD A BM TODAY.
[2023-06-16 15:00] VITALS: BP 118/90
[2023-06-16 19:16] VITALS: BP 122/83
[2023-06-16 23:46] VITALS: BP 151/95
[2023-06-17 04:18] VITALS: BP 145/98
[2023-06-17 04:19] LABS: BASOPHILS ABSOLUTE AUTO 0.06 K/mm3 (0.00-0.23); BASOPHILS PERCENT AUTO 0 % (0-2); EOSINOPHILS ABSOLUTE AUTO 0.17 K/mm3 (0.00-0.68); EOSINOPHILS PERCENT AUTO 1 % (0-6); Hematocrit 32.8 % (37.0-53.0); Hemoglobin 11.1 g/dL (13.5-17.5); IMMATURE GRAN ABSOLUTE AUTO 0.11 K/mm3 (0.00-0.10); IMMATURE GRAN PERCENT AUTO 1 % (0-1); LYMPHOCYTES ABSOLUTE AUTO 1.12 K/mm3 (0.84-5.20); LYMPHOCYTES PERCENT AUTO 8 % (21-46); MONOCYTES ABSOLUTE AUTO 0.99 K/mm3 (0.16-1.47); MONOCYTES PERCENT AUTO 7 % (4-13); Mean Corpuscular HGB 30.8 pg (26.0-34.0); Mean Corpuscular HGB Conc 33.8 g/dL (31.5-36.5); Mean Corpuscular Volume 91 fL (80-100); Mean Platelet Volume 9.7 fL (9.1-12.4); NEUTROPHILS ABSOLUTE AUTO 11.42 K/mm3 (1.96-9.15); NEUTROPHILS PERCENT AUTO 82 % (41-73); Platelet Count 342 K/mm3 (150-400); RDW Coefficient Variation 17.4 % (11.7-14.2); RDW Standard Deviation 58.5 fL (35.1-46.3); White Blood Cell Count 13.87 K/mm3 (4.00-11.30)
[2023-06-17 04:44] LABS: Albumin, Blood 1.8 g/dL (3.4-5.0); Anion Gap 3 mmol/L (6-16); Blood Urea Nitrogen 7 mg/dL (8-24); Bun/Creatinine Ratio 8.8 (12.0-20.0); CO2, Blood 28 mmol/L (21-32); Calcium, Blood 8.2 mg/dL (8.5-10.1); Chloride, Blood 109 mmol/L (98-108); Creatinine, Blood 0.79 mg/dL (0.60-1.20); Glomerular Filtration Rate 96 (60-); Glucose, Blood 79 mg/dL (70-99); Phosphorus, Blood 2.7 mg/dL (2.5-4.9); Potassium, Blood 4.4 mmol/L (3.5-5.5); Sodium, Blood 140 mmol/L (136-145)
--- NOTE | 2023-06-17 05:15 | NUR ---
SHIFT SUMMARY PATIENT IS AOX4, IMPULSIVE AT TIMES. BED ALARM ON. PATIENT HAD MULTIPLE LOOSE BMS THIS SHIFT. FULL LINEN CHANGE AND PARTIAL BED BATH DONE. TOLERATING PO INTAKE. RATES PAIN 08/15/, MEDICATED PER EMAR. POWER GLIDE IN BARRY HAS DIFFICULTY FLUSHING, R AC PERIPHERAL SALINE LOCKED. HR NOTED TO INCREASE DURING ACTIVITY INTO THE 120'S. DECREASED BACK DOWN TO 105-110 WITH REST. PULSE OX IN PLACE, SPO2>92% ON 4LNC. PATINET DOES TAKE O2 OFF AT TIMES. LUNGS SOUNDS COURSE AND DIM. DENIES BREATHING TX THIS SHIFT. CALL LIGHT IS IN REACH. WILL REPORT TO DAY NURSE.
[2023-06-17 07:34] VITALS: BP 139/85
[2023-06-17 10:42] LABS: Adenovirus F 40/41 Not Detected (NOT DETECT); Astrovirus Not Detected (NOT DETECT); Campylobacter Sp Not Detected (NOT DETECT); Cryptosporidium Not Detected (NOT DETECT); Cyclospora Cayetanensis Not Detected (NOT DETECT); E. Coli O157 Not Detected (NOT DETECT); Entamoeba Histolytica Not Detected (NOT DETECT); Enteroaggregative E. coli-EAEC Not Detected (NOT DETECT); Enteropathogenic E. coli-EPEC Not Detected (NOT DETECT); Enterotoxigenic E. coli-ETEC Not Detected (NOT DETECT); Giardia Lamblia Not Detected (NOT DETECT); Norovirus GI/GII Not Detected (NOT DETECT); Plesiomonas Shigelloides Not Detected (NOT DETECT); Rotavirus A Not Detected (NOT DETECT); Salmonella Sp Not Detected (NOT DETECT); Sapovirus Not Detected (NOT DETECT); Shiga Toxin-prod E. coli-STEC Not Detected (NOT DETECT); Shigella/Enteroin E. coli-EIEC Not Detected (NOT DETECT); Vibrio Cholerae Not Detected (NOT DETECT); Vibrio Sp Not Detected (NOT DETECT); Yersinia Enterocolitica Not Detected (NOT DETECT)
[2023-06-17 14:43] VITALS: BP 148/87
--- NOTE | 2023-06-17 19:40 | NUR ---
SHIFT SUMMARY S/P RLE CELLULITIS, A/OX4, VSS, TOLERATING PO, VOIDING AND HAVING BM'S, PAIN MANAGED PER EMAR THOUGH HE DID REPORT AN INCREASE IN PAIN AFTER HIS UNNA BOOT WAS REMOVED AND WOUND CLEANSER WAS USED ON HIS FOOT. PT ABLE TO GET TO BSC INDEPENDENTLY. NO ACUTE EVENTS THIS SHIFT. CALL LIGHT IN REACH, REPORT GIVEN TO NOC NR.
[2023-06-17 19:46] VITALS: BP 151/111
[2023-06-17 20:37] VITALS: BP 151/102; BP 151/108
--- NOTE | 2023-06-17 21:00 | NUR ---
HOSPITALIST HOSPITALIST CALLED AND UPDATED ABOUT PTS HTN, PT REMAINS ASYMPTOMATIC. NO NEW ORDERS OBTAINED AT THIS TIME
[2023-06-18 02:08] VITALS: BP 156/94
--- NOTE | 2023-06-18 04:28 | NUR ---
SHIFT SUMMARY VSS. HTN AND TACHYCARDIA NOTED, HOSPITALIST AWARE. PT HAS HAD MINIMAL SLEEP T/O THE NIGHT. MEDICATED FOR PAIN WITH METHADONE, PT REPORTS MINIMAL RELIEF. PT AMBULATING TO BSC INDEPENDENTLY, ONE LARGE VOID AND LIQUID STOOL NOTED. RLE REMAINS RED,INFLAMED, WARM, AND HYPERSENSITIVE. PT CONTINUES TO PICK AT FLAKING SKIN ON THIS FOOT, DESPITE BEING EDUCATED ABOUT INCREASED INFECTION RISK. TOLLERATING PO INTAKE W/O N/V. PLAN TO CONTINUE IV ABX AND D/C TO SNF WHEN STABLE NO IGNITION SOURCE NOTED
[2023-06-18 07:41] VITALS: BP 154/95
[2023-06-18 09:29] LABS: BASOPHILS ABSOLUTE AUTO 0.08 K/mm3 (0.00-0.23); BASOPHILS PERCENT AUTO 1 % (0-2); EOSINOPHILS ABSOLUTE AUTO 0.36 K/mm3 (0.00-0.68); EOSINOPHILS PERCENT AUTO 3 % (0-6); Hematocrit 36.2 % (37.0-53.0); Hemoglobin 12.3 g/dL (13.5-17.5); IMMATURE GRAN ABSOLUTE AUTO 0.13 K/mm3 (0.00-0.10); IMMATURE GRAN PERCENT AUTO 1 % (0-1); LYMPHOCYTES ABSOLUTE AUTO 1.59 K/mm3 (0.84-5.20); LYMPHOCYTES PERCENT AUTO 14 % (21-46); MONOCYTES ABSOLUTE AUTO 0.82 K/mm3 (0.16-1.47); MONOCYTES PERCENT AUTO 7 % (4-13); Mean Corpuscular HGB 30.7 pg (26.0-34.0); Mean Corpuscular Volume 90 fL (80-100); Mean Platelet Volume 10.6 fL (9.1-12.4); NEUTROPHILS ABSOLUTE AUTO 8.66 K/mm3 (1.96-9.15); NEUTROPHILS PERCENT AUTO 74 % (41-73); Platelet Count 431 K/mm3 (150-400); RDW Coefficient Variation 17.4 % (11.7-14.2); RDW Standard Deviation 58.3 fL (35.1-46.3); Red Blood Cell Count 4.01 M/mm3 (4.30-5.90); White Blood Cell Count 11.64 K/mm3 (4.00-11.30)
[2023-06-18 09:34] LABS: Bun/Creatinine Ratio 9.7 (12.0-20.0); Calcium, Blood 8.3 mg/dL (8.5-10.1); Creatinine, Blood 0.72 mg/dL (0.60-1.20); Potassium, Blood 4.1 mmol/L (3.5-5.5)
--- NOTE | 2023-06-18 12:00 | NUR ---
PT REPORTED NAUSEA, MEDICATED WITH ZOFRAN PER EMAR
[2023-06-18 14:44] VITALS: BP 110/87
[2023-06-18 19:51] VITALS: BP 138/86
[2023-06-19 04:14] LABS: BASOPHILS ABSOLUTE AUTO 0.09 K/mm3 (0.00-0.23); BASOPHILS PERCENT AUTO 1 % (0-2); EOSINOPHILS ABSOLUTE AUTO 0.37 K/mm3 (0.00-0.68); EOSINOPHILS PERCENT AUTO 4 % (0-6); Hematocrit 34.6 % (37.0-53.0); Hemoglobin 11.7 g/dL (13.5-17.5); IMMATURE GRAN ABSOLUTE AUTO 0.16 K/mm3 (0.00-0.10); IMMATURE GRAN PERCENT AUTO 2 % (0-1); LYMPHOCYTES ABSOLUTE AUTO 2.13 K/mm3 (0.84-5.20); LYMPHOCYTES PERCENT AUTO 20 % (21-46); MONOCYTES PERCENT AUTO 8 % (4-13); Mean Corpuscular HGB 30.5 pg (26.0-34.0); Mean Corpuscular HGB Conc 33.8 g/dL (31.5-36.5); Mean Corpuscular Volume 90 fL (80-100); Mean Platelet Volume 9.9 fL (9.1-12.4); NEUTROPHILS ABSOLUTE AUTO 6.89 K/mm3 (1.96-9.15); NEUTROPHILS PERCENT AUTO 66 % (41-73); Platelet Count 422 K/mm3 (150-400); RDW Coefficient Variation 17.5 % (11.7-14.2); RDW Standard Deviation 57.6 fL (35.1-46.3); Red Blood Cell Count 3.83 M/mm3 (4.30-5.90); White Blood Cell Count 10.44 K/mm3 (4.00-11.30)
[2023-06-19 04:29] LABS: Calcium, Blood 8.4 mg/dL (8.5-10.1); Creatinine, Blood 0.77 mg/dL (0.60-1.20); Potassium, Blood 4.3 mmol/L (3.5-5.5)
[2023-06-19 05:21] VITALS: BP 136/87
--- NOTE | 2023-06-19 05:40 | NUR ---
SHIFT SUMMARY VSS. PT SLEPT A LITTLE T/O THE NIGHT. MEDICATED FOR PAIN WITH METHADONE. PT TOLLERATING PO ITNAKE. NO ACUTE EVENTS T/O THE NIGHT. PT TO BE D/C'ED TODAY. HE HAS AN APPOINTMENT WITH THE PAIN CLINIC TODAY TO BE DOSED WITH METHADONE, HE MUST BE THERE BEFORE 11 AM. PLAN TO THEN GET WOUND CARE AT [facility].
[2023-06-19 07:33] VITALS: BP 149/79
--- NOTE | 2023-06-19 12:26 | NUR ---
DC'D HOME, DC INSTRUCTIONS GIVEN, VERBALIZED UNDERSTANDING, BELONGINGS GIVEN TO PT.
== END 2023-06-19 12:33 | disposition home or self-care (01) | DRG 871 ==
LOC: ER 12:10 → SURS 14:52 → MEDS 14:52 → SURS 16:19
PROVIDERS: Emergency Medicine; Physician Assistant; ADMIT Internal Medicine
DX: A41.9 Sepsis, unspecified organism (principal); G92.8 Other toxic encephalopathy; J69.0 Pneumonitis due to inhalation of food and vomit; J18.9 Pneumonia, unspecified organism; L03.115 Cellulitis of right lower limb; J44.0 Chronic obstructive pulmonary disease with (acute) lower respiratory infection; N39.0 Urinary tract infection, site not specified; J98.11 Atelectasis; K52.1 Toxic gastroenteritis and colitis; F17.210 Nicotine dependence, cigarettes, uncomplicated; M77.8 Other enthesopathies, not elsewhere classified; T36.95XA Adverse effect of unspecified systemic antibiotic, initial encounter; R54 Age-related physical debility; E78.5 Hyperlipidemia, unspecified; I11.0 Hypertensive heart disease with heart failure; I50.9 Heart failure, unspecified; B96.20 Unspecified Escherichia coli [E. coli] as the cause of diseases classified elsewhere; G89.4 Chronic pain syndrome; K21.9 Gastro-esophageal reflux disease without esophagitis; R65.20 Severe sepsis without septic shock; B87.1 Wound myiasis; N40.0 Benign prostatic hyperplasia without lower urinary tract symptoms; L97.519 Non-pressure chronic ulcer of other part of right foot with unspecified severity; M54.50 Low back pain, unspecified; I87.2 Venous insufficiency (chronic) (peripheral); F12.90 Cannabis use, unspecified, uncomplicated; Z85.46 Personal history of malignant neoplasm of prostate; Z88.5 Allergy status to narcotic agent; Z88.8 Allergy status to other drugs, medicaments and biological substances; Z79.899 Other long term (current) drug therapy; Z79.2 Long term (current) use of antibiotics; Z98.890 Other specified postprocedural states; Z59.00 Homelessness unspecified; Z85.820 Personal history of malignant melanoma of skin; Z87.11 Personal history of peptic ulcer disease; Z87.19 Personal history of other diseases of the digestive system; Z86.19 Personal history of other infectious and parasitic diseases; Z92.3 Personal history of irradiation
CPT/HCPCS: 36415; 71046; 73620; 73701; 80048; 80053; 80069; 80202; 81001; 82550; 83605; 85025; 85027; 85651; 86140; 87040; 87077; 87086; 87186; 87507; 94640; 94664; 94760; 94762; 96365; 96366; 97162; 97166; 97530; 97535; 99285-25; A9270; C1751; J0692; J0696; J1650; J2405; J2543; J3370; J7050; Q9967

== ENCOUNTER → 2023-07-20 | Outpatient (CLI) | payer MEDICARE, OTHER ==
[~2023-07-20] MED LIST changes: +FAMO20 PO; +NICO21TP TOP; +Nicoderm Cq1 EAC1 TOP; +Nicoderm Cq1 EACH TOP
== END | disposition home or self-care (01) ==
LOC: LAB 15:45 → LAB SHORT 15:45
DX: E78.5 Hyperlipidemia, unspecified (principal); R73.03 Prediabetes
CPT/HCPCS: 83036

== ENCOUNTER 2025-07-18 12:33 | Emergency (ER) | payer MEDICARE, OTHER ==
[~2025-07-18] VITALS: Ht 172.7 cm; Wt 70.3 kg
[2025-07-18] MEDS ORDERED: Water 500ML With 1 PKT Castile Soap Enema PR ONE (17:50)
[2025-07-18] MEDS ORDERED: Docusate Sodium Liquid 100 MG UDC PO ONE (18:25)
[2025-07-18 20:28] VITALS: BP 138/74
== END 2025-07-18 20:33 | disposition home or self-care (01) ==
LOC: ER 12:33
DX: K59.00 Constipation, unspecified (principal); I10 Essential (primary) hypertension; F17.210 Nicotine dependence, cigarettes, uncomplicated; Z79.899 Other long term (current) drug therapy; Z88.6 Allergy status to analgesic agent; Z88.2 Allergy status to sulfonamides; Z88.5 Allergy status to narcotic agent; Z88.8 Allergy status to other drugs, medicaments and biological substances
CPT/HCPCS: 74018; 99283-25; A9270

== ENCOUNTER 2025-10-30 20:41 | Emergency (ER) | payer OTHER, MEDICARE ==
[~2025-10-30] VITALS: Ht 172.7 cm; Wt 74.8 kg
[2025-10-30] MEDS ORDERED: Nitrofurantoin100 M1 PO (22:51)
[2025-10-31] MEDS ORDERED: Lidocaine 4% 1 Patch TOP ONE (01:25)
[2025-10-31 02:35] VITALS: BP 133/76
[2025-10-31] MEDS ORDERED: LIDO700A20 TOP (02:54)
== END 2025-10-31 03:02 | disposition home or self-care (01) ==
LOC: ER 20:41
DX: M25.551 Pain in right hip (principal); F17.210 Nicotine dependence, cigarettes, uncomplicated; I10 Essential (primary) hypertension; W01.0XXA Fall on same level from slipping, tripping and stumbling without subsequent striking against object, initial encounter; J45.909 Unspecified asthma, uncomplicated; Z79.899 Other long term (current) drug therapy; Z88.6 Allergy status to analgesic agent; Z88.5 Allergy status to narcotic agent; Z88.8 Allergy status to other drugs, medicaments and biological substances
CPT/HCPCS: 72192; 73502; 99284-25; A9270